=== PATIENT | female | born 1980 | race Caucasian/White ===

== ENCOUNTER → 2023-06-05 | Outpatient (REF) | payer OTHER | LOC: M LAB REF 17:53 | PROVIDERS: ATTEND Physician Assistant | DX: N10 Acute pyelonephritis (principal) ==

== ENCOUNTER → 2025-01-17 | Outpatient (CLI) | payer OTHER ==
[2025-01-17 07:32] VITALS: TEMP 98.6
[2025-01-17 08:30] VITALS: BP 110/70; O2SAT 100
== END ==
LOC: M WHCPRO 07:38
PROVIDERS: ATTEND Student in an Organized Health Care Education/Training Program
DX: C50.412 Malignant neoplasm of upper-outer quadrant of left female breast (principal); N63.20 Unspecified lump in the left breast, unspecified quadrant

== ENCOUNTER → 2025-02-08 | Outpatient (CLI) | payer OTHER | LOC: M PLALAB 08:47 | PROVIDERS: ATTEND Surgery | DX: C50.412 Malignant neoplasm of upper-outer quadrant of left female breast (principal); Z80.3 Family history of malignant neoplasm of breast ==

== ENCOUNTER → 2025-02-14 | Outpatient (CLI) | payer OTHER ==
[2025-02-14 10:11] VITALS: TEMP 98.8
[2025-02-14 10:48] VITALS: BP 122/72; O2SAT 100
== END ==
LOC: M WHCPRO 10:06
PROVIDERS: ATTEND Surgery
DX: C50.412 Malignant neoplasm of upper-outer quadrant of left female breast (principal)
CPT/HCPCS: 19285; 77065; A4648

== ENCOUNTER → 2025-02-21 | Outpatient (CLI) | payer OTHER ==
[~2025-02-21] MED LIST: PROHANCE 279.3MG/ML 15ML VIAL ONE
== END ==
LOC: M PLAIMG 13:35
PROVIDERS: ATTEND Surgery
DX: C50.412 Malignant neoplasm of upper-outer quadrant of left female breast (principal)
CPT/HCPCS: A9576; C8908

== ENCOUNTER → 2025-04-16 | Outpatient (CLI) | payer OTHER ==
[~2025-04-16] MED LIST changes: +CIPR500T39; +OXYC-517 PO; +OXYCPOW PO
== END ==
LOC: M PLAIMG 09:53
PROVIDERS: ATTEND Surgery
DX: C50.912 Malignant neoplasm of unspecified site of left female breast (principal)

== ENCOUNTER 2025-05-17 07:48 | Observation (INO) | payer OTHER ==
[~2025-05-17] VITALS: Ht 157.5 cm; Wt 64.2 kg
[2025-05-17] MEDS: FAMOTIDINE 20 MG/2 ML VIAL IVP ONE (07:13)
[2025-05-17] MEDS: GABAPENTIN 300 MG CAP PO ONE (07:13)
[~2025-05-17 07:48] MED LIST changes: +ALBU8.5H; +FAMOTIDINE 20 MG/2 ML VIAL IVP ONE; +GABAPENTIN 300 MG CAP PO ONE; -PROHANCE 279.3MG/ML 15ML VIAL ONE; +SCOPOLAMINE 1MG TRANSDERMAL PATCH TOP ONE; +VITA100093 PO
[2025-05-17] MEDS: SCOPOLAMINE 1MG TRANSDERMAL PATCH TOP ONE (08:49)
[2025-05-17] MEDS: LR 1,000 ML IV SCH ×2 (10:00→14:30)
[2025-05-17] MEDS ORDERED: dexAMETHasone 4 MG/ML 1 ML VIAL As Ordered ONE (10:01)
[2025-05-17] MEDS ORDERED: ONDANSETRON 4MG/2ML VIAL As Ordered ONE (10:01)
[2025-05-17] MEDS ORDERED: ROCURONIUM BROMIDE 50MG/5ML VIAL As Ordered ONE (10:01)
[2025-05-17] MEDS ORDERED: LIDOCAINE 2% 100 MG/5 ML SDV (FOR ANES.) As Ordered ONE (10:01)
[2025-05-17] MEDS ORDERED: MIDAZOLAM INJ 2 MG/2 ML VIAL As Ordered ONE (10:02)
[2025-05-17] MEDS ORDERED: dexmedeTOMIDine (4 MCG/ML) 200 MCG/50 ML BTL As Ordered ONE (10:02)
[2025-05-17] MEDS ORDERED: LACRILUBE (AKWA TEARS) OPHTH OINT 3.5 GM As Ordered ONE (10:06)
[2025-05-17] MEDS: ceFAZolin SOD 2 GM IV ONCE IV ONE (11:30)
[2025-05-17] MEDS: HEPARIN SOD 5000 UNITS/ML 1 ML VIAL/SYRINGE As Ordered ONE (11:30)
[2025-05-17] MEDS ORDERED: PHENYLephrine 500MCG 5ML (100MCG/ML) SYRINGE As Ordered ONE (12:03)
[2025-05-17] MEDS ORDERED: ACETAMINOPHEN 1000MG/100ML IV BAG As Ordered ONE (12:07)
[2025-05-17] MEDS ORDERED: SUGAMMADEX SODIUM 200 MG/2 ML VIAL As Ordered ONE (12:07)
[2025-05-17] MEDS ORDERED: HYDROmorphone HCL 2 MG/ML 1 ML VIAL As Ordered ONE (12:24)
[2025-05-17] MEDS: GENTAMICIN SULF 80 MG/2 ML VIAL As Ordered ONE (14:20)
[2025-05-17] MEDS ORDERED: ALBUTEROL 90 MCG/ACT 8 GM HFA INHALER INH PRN (14:30)
[2025-05-17] MEDS ORDERED: MIRALAX *UNIT DOSE* 17 GM PACKET PO PRN (14:30)
[2025-05-17] MEDS ORDERED: ACETAMINOPHEN 325 MG TAB PO PRN (14:30)
[2025-05-17] MEDS ORDERED: ONDANSETRON 4MG/2ML VIAL IV PRN (16:55)
[2025-05-17] MEDS ORDERED: HYDROMORPHONE HCL 0.5 MG/0.5 ML SYRINGE IV PRN (16:55)
[2025-05-17] MEDS: traMADol 50 MG TAB PO ONE (16:55)
[2025-05-17 19:45] VITALS: BP 123/56; TEMP 97.9; O2SAT 99
[2025-05-17 21:01] VITALS: BP 125/76; TEMP 97.5; O2SAT 100
[2025-05-17] MEDS: DOCUSATE SODIUM 100 MG CAPSULE PO SCH (21:12)
[2025-05-17] MEDS: ceFAZolin SODIUM 2 GM in DEXTROSE 5% (D5W) ADV/MINI-BAG 50 ML IV SCH (21:13)
[2025-05-17 22:00] VITALS: BP 122/59; TEMP 97.7; O2SAT 100
[2025-05-17] MEDS: ONDANSETRON 4MG/2ML VIAL IV PRN (22:05)
[2025-05-17 23:00] VITALS: BP 109/54; TEMP 98; O2SAT 98
[2025-05-18 00:29] VITALS: BP 110/56; TEMP 98; O2SAT 99
[2025-05-18 06:59] VITALS: BP 119/57; TEMP 97.6; O2SAT 98
[2025-05-18] MEDS ORDERED: OXYC-517 PO (09:15)
[2025-05-18] MEDS ORDERED: AMOX875T2 PO (09:15)
== END 2025-05-18 10:50 | disposition home or self-care (01) ==
LOC: M SDC 07:48 → M MS5PR 07:49
PROVIDERS: ADMIT Surgery; ATTEND Surgery
DX: C50.912 Malignant neoplasm of unspecified site of left female breast (principal)
CPT/HCPCS: 19120; 19303; 19316; 19357; 81025; 88302; 88305; 88307; 96365; 96366; 96375; C1789; J0131; J0665; J0666; J0688; J1100; J1171; J1580; J2250; J2371; J2405; J3010; Q4116